=== PATIENT | male | born 1970 | race Two or more races ===

== ENCOUNTER 2017-02-16 15:09 | Emergency (ER) | payer SELFPAY ==
[~2017-02-16] VITALS: Ht 188 cm; Wt 90.7 kg
[2017-02-16 15:42] VITALS: BP 123/85
[2017-02-16 19:28] LABS: Basophils # (auto) 0.1 uL; Basophils % (auto) 1.4 % (0.0-2.0); Eosinophils # (auto) 0.1 uL; Eosinophils % (auto) 0.8 % (0.0-7.0); Hemoglobin 14.4 g/dL (13.5-17.5); Lymphocytes # (auto) 2.7 uL; Lymphocytes % (auto) 41.5 % (10.0-50.0); Mean Corpuscular Hemoglobin 27.2 pg (28.0-32.0); Mean Corpuscular Hgb Conc. 32.7 g/dL (32.0-36.0); Mean Corpuscular Volume 83.2 fL (80.0-100.0); Mean Platelet Volume 7.2 fL (7.4-10.4); Monocytes # (auto) 0.6 uL; Monocytes % (auto) 8.7 % (0.0-12.0); Neutrophils # (auto) 3.1 uL; Neutrophils % (auto) 47.6 % (37.0-80.0); Platelet Count (auto) 173 10^3/uL (140-450); Red Cell Distribution Width 15.8 % (11.6-16.0); White Blood Cell 6.4 10^3/uL (4.4-10.8)
[2017-02-16 19:49] LABS: Albumin 4.1 g/dL (3.4-5.0); BUN/Creatinine Ratio 4.9; Calcium 8.7 mg/dL (8.5-10.1); Total Protein 9.4 g/dL (6.4-8.2)
== END 2017-02-16 22:25 | disposition left against medical advice (07) ==
LOC: ER 15:45
DX: F10.10 Alcohol abuse, uncomplicated (principal); Z53.21 Procedure and treatment not carried out due to patient leaving prior to being seen by health care provider
CPT/HCPCS: 36415; 80053; 80320; 85025